=== PATIENT | male | born 1970 | race Hispanic/Latino ===

== ENCOUNTER 2017-06-13 16:03 | Emergency (ER) | payer MEDICAID ==
[2017-06-13 17:05] LABS: Hematocrit 33.2 % (35.5-45.6); Hemoglobin 10.6 gm/dl (11.8-15.2); Mean Corpuscular HGB Conc 32 % (32-34); Mean Corpuscular Hemoglobin 28 pg (28-32); Mean Corpuscular Volume 87 fl (84-94); Red Blood Count 3.82 M/mm3 (3.65-5.03)
[2017-06-13 17:10] LABS: Alanine Aminotransferase 20 units/L (7-56); Albumin 2.2 g/dL (3.9-5); BUN/Creatinine Ratio 17; Bilirubin,Direct 0.7 mg/dL (0-0.2); Blood Urea Nitrogen 5 mg/dL (9-20); Calcium 7.5 mg/dL (8.4-10.2); Hemolysis Index 3
[2017-06-13 17:16] LABS: Platelet Count 46 K/mm3 (140-440); Red Cell Distribution Width 23.5 % (13.2-15.2)
[2017-06-13 17:22] LABS: Bilirubin,Urine SM (Negative); Blood,Urine LG (Negative); Color,Urine Amber (Yellow); Mucus,Urine 3+ /HPF
[2017-06-13 17:26] LABS: RBC,Urine > 182.0 /HPF (0.0-6.0)
[2017-06-13 17:29] LABS: Ictotest,Urine Positive (Negative)
--- NOTE | 2017-06-13 17:53 | Emergency Department Report ---
ED General Adult HPI - General Chief complaint: Abdominal Pain Stated complaint: LEG PAIN Time Seen by Provider: 06/13/17 17:30 Source: patient Mode of arrival: Ambulatory Limitations: No Limitations - History of Present Illness Initial comments: 47 hx of esld w/ etoh and ?hep c, saw pcp Sandy Yeboah yesterday they told him he needs to get to ER for his sugar, he came today for evaluation of possible elevated glucose and progression of his chronic cirrhosis with chronic edema and ascites. He denies any abdominal pain he denies fever he denies shortness of breath or chest pain he does state increasing bilateral by pedal edema with leg pain. Patient has chronic pain patient, pcp has him on Percocet and Valium. Says he is on propranolol and spironolactone for her liver. Takes 70/ 30 and oral agent for his diabetes.worried that glu is high and "getting time for a peritoneal tap." told nurse last tap was a mo. ago, told me it was maybe a yr ago, I asked which it was he said "that sounds about right Idon't remember " -: unknown Location: left, right, lower extremity Radiation: non-radiation Severity scale (0 -10): 2 Quality: burning Consistency: intermittent Improves with: none Worsens with: none Associated Symptoms: denies: confusion, chest pain, cough, diaphoresis, fever/ chills, headaches, loss of appetite, nausea/vomiting, rash, seizure, shortness of breath, syncope - Related Data Home Medications Medication Instructions Recorded Confirmed Last Taken Pantoprazole [Protonix] 40 mg PO BID 09/01/15 09/01/15 Unknown Sertraline [Zoloft] 200 mg PO QDAY 09/01/15 09/01/15 Unknown metFORMIN [Glucophage] 500 mg PO BID 09/01/15 09/01/15 Unknown Previous Rx's Medication Instructions Recorded Last Taken Type Furosemide [Lasix] 20 mg PO QDAY #15 tablet 06/13/17 Unknown Rx Spironolactone [Aldactone] 50 mg PO QDAY 15 Days tablet 06/13/17 Unknown Rx Allergies Allergy/AdvReac Type Severity Reaction Status Date / Time ketorolac tromethamine Allergy Swelling Verified 09/01/15 18:52 [From Toradol] morphine AdvReac Itching Verified 09/01/15 11:14 ED Review of Systems ROS: Stated complaint: LEG PAIN Other details as noted in HPI Comment: All other systems reviewed and negative Constitutional: denies: diaphoresis, fever ENT: denies: dental pain, hearing loss, epistaxis Respiratory: denies: cough, orthopnea, shortness of breath, SOB with exertion, SOB at rest, stridor Cardiovascular: edema. denies: chest pain, palpitations, dyspnea on exertion, orthopnea, syncope Gastrointestinal: denies: abdominal pain, nausea, vomiting, diarrhea, constipation, hematemesis, melena, hematochezia Musculoskeletal: arthralgia, myalgia Skin: other (operations and healing subacute laceration extremities no cellulitis for range of motion and neurovascularly intact). denies: change in color Neurological: paresthesias. denies: headache, confusion Hematological/Lymphatic: other (chronic pedal edema) ED Past Medical Hx - Past Medical History Hx Diabetes: Yes Hx Liver Disease: Yes (Hep C) Hx Seizures: No Additional medical history: Hep C, ETOH abuse - Surgical History Additional Surgical History: GI procedures - Social History Smoking Status: Current Every Day Smoker Substance Use Type: Alcohol - Medications Home Medications: Home Medications Medication Instructions Recorded Confirmed Last Taken Type Pantoprazole [Protonix] 40 mg PO BID 09/01/15 09/01/15 Unknown History Sertraline [Zoloft] 200 mg PO QDAY 09/01/15 09/01/15 Unknown History metFORMIN [Glucophage] 500 mg PO BID 09/01/15 09/01/15 Unknown History Furosemide [Lasix] 20 mg PO QDAY #15 tablet 06/13/17 Unknown Rx Spironolactone [Aldactone] 50 mg PO QDAY 15 Days tablet 06/13/17 Unknown Rx ED Physical Exam - General Limitations: No Limitations General appearance: alert, in no apparent distress, anxious, other (no respiratory distress alert and oriented 3 no chest pain no abdominal pain) - Head Head exam: Present: atraumatic, normocephalic - Eye Eye exam: Present: normal appearance, PERRL, EOMI - ENT ENT exam: Present: normal exam, normal orophraynx - Neck Neck exam: Present: normal inspection. Absent: tenderness, meningismus - Respiratory Respiratory exam: Present: normal lung sounds bilaterally. Absent: respiratory distress, wheezes, rales, rhonchi, stridor, chest wall tenderness, accessory muscle use, prolonged expiratory - Cardiovascular Cardiovascular Exam: Present: regular rate, normal heart sounds - GI/Abdominal GI/Abdominal exam: Present: soft, other (no warmth or erythema no evidence of SBP at this time). Absent: tenderness, guarding, rebound, mass, pulsatile mass - Extremities Exam Extremities exam: Present: pedal edema (chronic pedal edema no cellulitis), other - Back Exam Back exam: Present: normal inspection. Absent: CVA tenderness (L), muscle spasm , paraspinal tenderness, vertebral tenderness - Neurological Exam Neurological exam: Present: alert, oriented X3, CN II-XII intact. Absent: motor sensory deficit - Skin Skin exam: Present: warm. Absent: erythema ED Course Vital Signs 06/13/17 06/13/17 06/13/17 16:09 20:24 21:40 Temperature 98.6 F 97.6 F Pulse Rate 100 H 71 Respiratory 16 16 16 Rate Blood Pressure 137/82 Blood Pressure 114/73 [Right] O2 Sat by Pulse 97 97 Oximetry ED Medical Decision Making - Lab Data Result diagrams: 06/13/17 16:20 06/13/17 16:20 - Radiology Data Radiology results: report reviewed - Medical Decision Making Patient has chronic pancytopenia platelet count is improved from previous it is a 46 leukocytosis of 1.6 thousand, this was felt to be related to his alcohol previously per the old chart. His cirrhosis is felt to be due to alcoholic cirrhosis with hep C. Case was discussed with Dr. goff he did agree that the patient likely was outpatient candidate we will go ahead and restart his Lasix spironolactone he is to continue his regular medicine he can have elected peritoneal tap as needed however there is no indication for a diagnostic tap at this time he has no indication for emergent therapeutic tap. His respiratory rate is normal he is afebrile he's nondistressed with good oxygen saturation and a negative chest x-ray and BNP we will treat the chronic cirrhosis continue his regular medicine increase diuretics he was informed of the need to follow- up with the [facility] gastroenterology service and return immediately if alarming symptoms such as chest pain fevers worsening symptoms or abdominal pain or change in mental status he verbalized understanding. Critical care attestation.: If time is entered above; I have spent that time in minutes in the direct care of this critically ill patient, excluding procedure time. ED Disposition Clinical Impression: End stage liver disease, Alcoholic cirrhosis of liver with ascites, History of hepatitis C Disposition: - TO HOME OR SELFCARE Is pt being admited?: No Condition: Stable Instructions: Ascites (ED), Cirrhosis (ED) Additional Instructions: See the doctors listed, return if new or alarming symptoms or call 911 Prescriptions: Furosemide [Lasix] 20 mg PO QDAY #15 tablet Spironolactone [Aldactone] 50 mg PO QDAY 15 Days tablet Referrals: LENCHO GOFF MD [Staff Physician] - 3-5 Days Time of Disposition: 22:17
[2017-06-13 18:08] LABS: Total Cells Counted 100
[2017-06-13 18:09] LABS: Anisocytosis 1+; Hypochromasia 2+; Target Cells 1+
[2017-06-13 18:09] LABS: INR 1.42 (0.87-1.13)
[2017-06-13 18:10] LABS: Partial Thromboplastin Time 38.7 Sec. (24.2-36.6)
[2017-06-13 18:10] LABS: Platelet Estimate Appears Decreased; Poikilocytosis 1+
--- NOTE | 2017-06-13 19:20 | XRay Report ---
FINAL REPORT PROCEDURE: XR CHEST 1V AP TECHNIQUE: Chest radiograph anteroposterior view. CPT 47299 HISTORY: esld COMPARISON: No prior studies are available for comparison. FINDINGS: Heart: Normal. Mediastinum/Vessels: Normal. Lungs/Pleural space: No infiltrate, effusion, or pneumothorax. Bony thorax: No acute osseous abnormality. Life support devices: None. IMPRESSION: No radiographic evidence of acute cardiopulmonary abnormality.
[2017-06-13] MEDS ORDERED: NORCO 5/325 PO ONE (21:24)
[2017-06-14 01:11] VITALS: BP 119/78
== END 2017-06-14 01:10 | disposition home or self-care (01) ==
LOC: ED 16:03
DX: K70.31 Alcoholic cirrhosis of liver with ascites (principal); K72.90 Hepatic failure, unspecified without coma; E11.9 Type 2 diabetes mellitus without complications; Z86.19 Personal history of other infectious and parasitic diseases; F17.200 Nicotine dependence, unspecified, uncomplicated; F10.10 Alcohol abuse, uncomplicated
CPT/HCPCS: 36415; 71045; 80053; 80074; 81001; 82140; 83880; 85007; 85025; 85610; 85730; 99284